=== PATIENT | female | born 1970 | race Caucasian/White ===

== ENCOUNTER → 2018-12-25 | Outpatient (CLI) | payer OTHER | LOC: EMCIMAGING 07:36 | PROVIDERS: ATTEND Internal Medicine Infectious Disease | DX: R50.9 Fever, unspecified (principal); R41.0 Disorientation, unspecified; R47.89 Other speech disturbances; R90.82 White matter disease, unspecified | CPT/HCPCS: 70553-PN ==

== ENCOUNTER → 2018-12-31 | Outpatient (CLI) | payer OTHER ==
[~2018-12-31] MED LIST: IOPAMIDOL (ISOVUE-300) 100 ML BTL ONE
== END ==
LOC: FIMAGING 15:12
PROVIDERS: ATTEND Internal Medicine Infectious Disease
DX: R50.9 Fever, unspecified (principal); R06.02 Shortness of breath; R05 Cough; R59.9 Enlarged lymph nodes, unspecified
CPT/HCPCS: Q9967